=== PATIENT | male | born 1955 | race American Indian/Alaskan Native ===

== ENCOUNTER 2017-03-27 05:06 | Emergency (ER) | payer MEDICAID ==
[2017-03-27 05:57] LABS: Hematocrit 43.7 % (35.5-45.6); Hemoglobin 14.4 gm/dl (11.8-15.2); Mean Corpuscular HGB Conc 33 % (32-34); Mean Corpuscular Hemoglobin 29 pg (28-32); Mean Corpuscular Volume 89 fl (84-94); Platelet Count 200 K/mm3 (140-440); Red Cell Distribution Width 13.9 % (13.2-15.2); White Blood Count 12.7 K/mm3 (4.5-11.0)
[2017-03-27 06:07] LABS: INR 1.08 (0.87-1.13)
[2017-03-27 06:14] LABS: Creatine Kinase MB 8.5 ng/mL (0.0-4.0)
--- NOTE | 2017-03-27 06:14 | Emergency Department Report ---
Blank Doc - Documentation Documentation: Repeat EKG after patient arrival shows ST elevation in inferior leads. This EKG was evaluated by STEMI player development manager regional director of finance Dr. Barrera at 5:40 AM. 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 Patient has complete paralysis of the lower left face, left arm, and left leg. Sensation is intact. Patient denies any chest pain. Positive sternotomy scar noted. Cardiology on standby pending CT head report and Dr. Barrera requests that Dr. En Kay contacted for further system. Case discussed with Dr. Wallis will assume seen for the care. Labs and chest x-ray pending. Dr Kay called at 6:11am and is in route to the hospital eta aprox [address] Burciaga neurologist returned call placed by Dr Wallis. He will evaluate CT images and call back with recommendations.
--- NOTE | 2017-03-27 06:15 | Cat Scan Report ---
FINAL REPORT PROCEDURE: CT HEAD/BRAIN WO CON TECHNIQUE: Computerized tomography of the head was performed without contrast material. HISTORY: left sided weakness COMPARISON: No prior studies are available for comparison. FINDINGS: There is cytotoxic edema involving the right caudate nucleus, frontal lobe, temporal lobe and parietal lobe with effacement of the cortical sulci and the frontal horn of the right lateral ventricle. Findings are consistent with recent ischemic infarction of the right middle cerebral artery territory. There is no hemorrhagic transformation. There is mass effect with shift of the septum pellucidum approximately 6.4 millimeters to the left. The left hemisphere, the brainstem and rene and cerebellum are unremarkable. There is calcified plaque in the cavernous portions of the internal carotid arteries. No specific evidence of acute arterial thrombosis is seen. The bony calvarium is intact. The paranasal sinuses are clear. IMPRESSION: Cytotoxic edema in the right middle cerebral artery vascular territory consistent with recent ischemic infarction. There is no hemorrhagic transformation. There is mass effect with shift of the septum pellucidum 6.4 millimeters to the left. There is no subfalcine or transtentorial herniation.
[2017-03-27 06:16] LABS: Anion Gap 22 mmol/L; BUN/Creatinine Ratio 12.22; Blood Urea Nitrogen 11 mg/dL (9-20); Calcium 9.6 mg/dL (8.4-10.2); Carbon Dioxide 22 mmol/L (22-30); Chloride 97.4 mmol/L (98-107); Creatine Kinase 539 units/L (55-170); Glucose 216 mg/dL (75-100); Potassium 4.3 mmol/L (3.6-5.0); Sodium 137 mmol/L (137-145)
[2017-03-27] MEDS ORDERED: VERSED ONE (06:18)
[2017-03-27] MEDS ORDERED: HEPARIN 10,000 UNITS/10 ML ONE (06:18)
[2017-03-27] MEDS ORDERED: HEPARIN/NS 5000 UNIT/500ML(CATH LAB) 0 ML IR ONE (06:18)
[2017-03-27] MEDS ORDERED: XYLOCAINE 2% INFILTRATI ONE (06:19)
[2017-03-27] MEDS ORDERED: SUBLIMAZE ONE (06:19)
[2017-03-27] MEDS ORDERED: CALAN ONE (06:19)
[2017-03-27] MEDS ORDERED: NITROGLYCERIN SYRINGE 0 ML ONE (06:19)
--- NOTE | 2017-03-27 06:21 | Emergency Department Report ---
ED General Adult HPI - General Chief complaint: Neuro Symptoms/Deficit Stated complaint: POSSIBLE CVA KS Time Seen by Provider: 03/27/17 05:40 Source: patient, EMS, RN notes reviewed, old records reviewed Mode of arrival: Stretcher Limitations: Physical Limitation - History of Present Illness Initial comments: This is a 62-year-old male. He is previously unknown to me. He is brought to the hospital via EMS. Review of old medical records indicates the patient has a history of heart disease, CABG, calm of 3 stents, hypertension. In addition, he is known to have a history of cocaine abuse. As per EMS documentation, they were contacted for a weakness/stroke call. EMS encounter the patient at 4:36 in the morning, with complaint of head, back and leg pain. Patient was found laying on the bathroom floor, for uncertain duration of time, for uncertain mechanism. The patient's last known well time is not known. Patient's initial complaints was left-sided weakness. It is constant. He cannot describe any exacerbating or relieving factors. Patient was found to have an abnormal EKG in the field, possibly concerning for acute KS. However, the patient denied chest pain initially. Apparently his fingerstick was 182. Upon arrival to the ER, patient was found to have left-sided weakness, and a left-sided facial droop. An emergent CT scan demonstrated large right MCA territory infarct, with cytotoxic edema, and midline shift. An initial EKG performed at 5:33 in the morning suggested an inferior wall KS. However, at that time, the patient was chest pain-free. The CT scan images were transmitted to [facility] PACs, and reviewed by their endovascular stroke specialist, Dr. Zaheer Burciaga, who agreed that the patient was not a suitable candidate for thrombolysis given unknown last well time, and also not a candidate for emergent endovascular intervention, and ultimately recommended that we did not need to obtain an emergent CT angiogram of the head and neck for endovascular intervention/stroke rescue. While in the ER, the patient did develop nonspecific epigastric burning and abdominal discomfort, and thus emergent interventional cardiology consult was obtained, with the patient being examined and seen by Dr Cal Kay. The patient is not a thrombolysis candidate for stroke, and given his recent MCA stroke, he is not a thrombolysis candidate for KS, as the patient has a very high risk of bleeding/hemorrhagic transformation. Furthermore, both the cardiology team, and the consulting neurology team, did not recommend heparinization, given high risk of bleed. The consulting neurology service does agree with aspirin, and permissive hypertension. An emergent CT angiogram of the chest, abdomen, pelvis is currently being performed to exclude aortic dissection. The case was also discussed with the neuro group manager at [facility], Dr. Longoria, who requested a call back once the CT angiogram had been performed, and the current plan is to transfer the patient for stroke service is not available at this facility, as his Hospital does not have stroke neurology available for consultation, does not have neurosurgery available in case the patient needs an emergent decompressive hemicraniectomy for cytotoxic edema and swelling. -: unknown Location: abdomen, left, upper extremity, lower extremity Quality: aching Consistency: constant Improves with: none Worsens with: none Associated Symptoms: weakness. denies: chest pain - Related Data Home Medications Medication Instructions Recorded Confirmed Last Taken Clopidogrel Bisulfate [Plavix] 75 mg PO DAILY 05/13/14 05/22/14 05/17/14 03:00 75 Aspirin [Baby Aspirin] 81 mg PO QDAY 05/17/14 05/22/14 05/17/14 03:00 81 HYDROcodone/ACETAMINOPHEN 10 - 325 mg PO PRN PRN 05/22/14 05/22/14 Unknown [Hydrocodon-Acetaminophn 10-325] Nitroglycerin [Nitrostat] 0.4 mg PO PRN PRN 05/22/14 05/22/14 Unknown Zolpidem Tartrate 10 mg PO HS PRN 05/22/14 05/22/14 Unknown traMADol [Ultram] 100 mg PO TID PRN 05/22/14 05/22/14 Unknown Allergies Allergy/AdvReac Type Severity Reaction Status Date / Time No Known Allergies Allergy Unverified 05/13/14 01:01 ED Review of Systems ROS: Stated complaint: POSSIBLE CVA KS Other details as noted in HPI Comment: Unobtainable due to pts medical conditions ED Past Medical Hx - Past Medical History Previous Medical History?: Yes Hx Hypertension: Yes Hx Heart Attack/AMI: Yes Hx Congestive Heart Failure: No Hx Diabetes: No Hx Asthma: No Hx COPD: No - Surgical History Past Surgical History?: Yes Additional Surgical History: CABG (1998), multiple cardiac stents (1994) - Social History Smoking Status: Unknown if ever smoked - Medications Home Medications: Home Medications Medication Instructions Recorded Confirmed Last Taken Type Clopidogrel Bisulfate [Plavix] 75 mg PO DAILY 05/13/14 05/22/14 05/17/14 03:00 History 75 Aspirin [Baby Aspirin] 81 mg PO QDAY 05/17/14 05/22/14 05/17/14 03:00 History 81 HYDROcodone/ACETAMINOPHEN 10 - 325 mg PO PRN PRN 05/22/14 05/22/14 Unknown History [Hydrocodon-Acetaminophn 10-325] Nitroglycerin [Nitrostat] 0.4 mg PO PRN PRN 05/22/14 05/22/14 Unknown History Zolpidem Tartrate 10 mg PO HS PRN 05/22/14 05/22/14 Unknown History traMADol [Ultram] 100 mg PO TID PRN 05/22/14 05/22/14 Unknown History ED Physical Exam - General Limitations: Physical Limitation General appearance: alert, in no apparent distress - Head Head exam: Present: atraumatic, normocephalic - Eye Eye exam: Present: normal appearance, EOMI. Absent: nystagmus - ENT ENT exam: Present: normal exam, normal orophraynx, mucous membranes moist, other - Neck Neck exam: Present: normal inspection, full ROM (there is a left-sided facial droop noted) - Respiratory Respiratory exam: Present: normal lung sounds bilaterally. Absent: respiratory distress, wheezes, rales, rhonchi, stridor, chest wall tenderness - Cardiovascular Cardiovascular Exam: Present: regular rate, normal rhythm, normal heart sounds. Absent: bradycardia, tachycardia, irregular rhythm, systolic murmur, diastolic murmur, rubs, gallop - GI/Abdominal GI/Abdominal exam: Present: soft, normal bowel sounds. Absent: distended, tenderness, guarding, rebound, rigid, pulsatile mass - Rectal Rectal exam: Present: deferred - Extremities Exam Extremities exam: Present: normal inspection, normal capillary refill. Absent: pedal edema, joint swelling, calf tenderness - Back Exam Back exam: Present: normal inspection, full ROM. Absent: tenderness, CVA tenderness (R), CVA tenderness (L), muscle spasm, paraspinal tenderness, vertebral tenderness - Neurological Exam Neurological exam: Present: alert, oriented X3, motor sensory deficit, other ( there is a left-sided facial droop. The extraocular movements are intact. There is 5/5 strength right upper extremity and right lower extremity, with sensation intact to light touch in upper extremity and right lower extremity. There is 0/5 strength in the left upper extremity, and there is 3/5 strength left lower extremity, with decreased sensation to light touch in the left hemibody.) - Psychiatric Psychiatric exam: Present: normal affect, normal mood - Skin Skin exam: Present: warm, dry, intact, normal color. Absent: rash ED Course Vital Signs 03/27/17 03/27/17 03/27/17 05:52 07:38 08:00 Temperature 98.6 F Pulse Rate 66 71 72 Respiratory 18 18 16 Rate Blood Pressure 172/66 Blood Pressure 169/88 162/93 [Left] O2 Sat by Pulse 99 98 98 Oximetry 03/27/17 08:55 Temperature 97.9 F Pulse Rate 82 Respiratory 14 Rate Blood Pressure Blood Pressure 156/99 [Left] O2 Sat by Pulse 99 Oximetry - Reevaluation(s) Reevaluation #1: 03/27/17 07:18 differential diagnosis: Subacute stroke, aortic dissection, acute coronary syndrome, intracranial injury, cervical spine injury Assessment and plan: 62-year-old male with 2 competing issues. He is a subacute stroke, last well time is unknown, he is not a candidate for thrombolysis, and a consultation with endovascular neurology, not a candidate for emergent endovascular salvage intervention. His acute stroke on CT scan is a medical contraindication to thrombolysis, and a contraindication to systemic anticoagulation. The patient is an essentially chest pain-free, with an abnormal EKG, initial presenting EKG performed in the ER suggests inferior wall KS, but is not associated with chest pain. While in the ER, the patient developed nonspecific abdominal pain, and is just getting an emergent CT angiogram to exclude aortic disease/dissection. He has been seen in consultation with our interventional cardiology team, who agreed that the patient is not suitable for thrombolysis or systemic anticoagulation from a cardiology standpoint, as his subacute stroke precludes that. A noncontrast CT scan of the brain demonstrates cytotoxic edema in the right MCA distribution, with 6 mm of shift. Patient will require transfer to [facility], and we have discussed the case with their stroke team, and they're no group manager, Dr. Longoria, who requests call back once his CT angiogram has been completed. Reevaluation #2: 03/27/17 07:38 ct angio chest negative Dr Longoria of [facility] accepts as a transfer Reevaluation #3: 03/27/17 08:11 CT scan of the abdomen and pelvis demonstrates renal thrombus, renal infarction. This is concerning for thromboembolic source of stroke. The case is rediscussed with Dr. Longoria. Systemic anticoagulation will be held as the patient is at very high risk for hemorrhagic transformation. ED Medical Decision Making - Lab Data Result diagrams: 03/27/17 05:40 03/27/17 05:40 Vital Signs 03/27/17 05:52 Pulse Rate 66 Respiratory 18 Rate Blood Pressure 172/66 O2 Sat by Pulse 99 Oximetry Lab Results 03/27/17 03/27/17 03/27/17 Range/Units 05:40 05:40 05:40 WBC 12.7 H (4.5-11.0) K/mm3 RBC 4.90 (3.65-5.03) M/mm3 Hgb 14.4 (11.8-15.2) gm/dl Hct 43.7 (35.5-45.6) % MCV 89 (84-94) fl MCH 29 (28-32) pg MCHC 33 (32-34) % RDW 13.9 (13.2-15.2) % Plt Count 200 (140-440) K/mm3 Add Manual Diff Complete Total Counted 100 Seg Neutrophils % Bilingual Medical Receptionist Seg Neuts % (Manual) 88.0 H (40.0-70.0) % Band Neutrophils % 0 % Lymphocytes % (Manual) 4.0 L (13.4-35.0) % Reactive Lymphs % (Man) 0 % Monocytes % (Manual) 8.0 H (0.0-7.3) % Eosinophils % (Manual) 0 (0.0-4.3) % Basophils % (Manual) 0 (0.0-1.8) % Metamyelocytes % 0 % Myelocytes % 0 % Promyelocytes % 0 % Blast Cells % 0 % Nucleated RBC % Not Reportable Seg Neutrophils # Man 11.2 H (1.8-7.7) K/mm3 Band Neutrophils # 0.0 K/mm3 Lymphocytes # (Manual) 0.5 L (1.2-5.4) K/mm3 Abs React Lymphs (Man) 0.0 K/mm3 Monocytes # (Manual) 1.0 H (0.0-0.8) K/mm3 Eosinophils # (Manual) 0.0 (0.0-0.4) K/mm3 Basophils # (Manual) 0.0 (0.0-0.1) K/mm3 Metamyelocytes # 0.0 K/mm3 Myelocytes # 0.0 K/mm3 Promyelocytes # 0.0 K/mm3 Blast Cells # 0.0 K/mm3 WBC Morphology Not Reportable Hypersegmented Neuts Not Reportable Hyposegmented Neuts Not Reportable Hypogranular Neuts Not Reportable Smudge Cells Not Reportable Toxic Granulation Not Reportable Toxic Vacuolation Not Reportable Dohle Bodies Not Reportable Pelger-Huet Anomaly Not Reportable Kellee Rods Not Reportable Platelet Estimate Consistent w auto Clumped Platelets Not Reportable Plt Clumps, EDTA Not Reportable Large Platelets Not Reportable Giant Platelets Not Reportable Platelet Satelliting Not Reportable Plt Morphology Comment Not Reportable RBC Morphology Not Reportable Dimorphic RBCs Not Reportable Polychromasia Not Reportable Hypochromasia Not Reportable Poikilocytosis Not Reportable Anisocytosis Not Reportable Microcytosis Not Reportable Macrocytosis Not Reportable Spherocytes Not Reportable Pappenheimer Bodies Not Reportable Sickle Cells Not Reportable Target Cells Not Reportable Tear Drop Cells Not Reportable Ovalocytes Not Reportable Helmet Cells Not Reportable Munson-Harahan Bodies Not Reportable [place] Rings Not Reportable [place] Cells Not Reportable Bite Cells Not Reportable Crenated Cell Not Reportable Elliptocytes Not Reportable Acanthocytes (Spur) Not Reportable Rouleaux Not Reportable Hemoglobin C Crystals Not Reportable Schistocytes Not Reportable Malaria parasites Not Reportable Sridhar Bodies Not Reportable Hem Pathologist Commnt No PT 13.9 (12.2-14.9) Sec. INR 1.08 (0.87-1.13) APTT 25.0 (24.2-36.6) Sec. Sodium 137 (137-145) mmol/L Potassium 4.3 (3.6-5.0) mmol/L Chloride 97.4 L (98-107) mmol/L Carbon Dioxide 22 (22-30) mmol/L Anion Gap 22 mmol/L BUN 11 (9-20) mg/dL Creatinine 0.9 (0.8-1.5) mg/dL Estimated GFR > 60 ml/min BUN/Creatinine Ratio 12.22 % Glucose 216 H (75-100) mg/dL Calcium 9.6 (8.4-10.2) mg/dL Total Creatine Kinase 539 H (55-170) units/L CK-MB (CK-2) 8.5 H (0.0-4.0) ng/mL CK-MB (CK-2) Rel Index 1.5 (0-4) Troponin T < 0.010 (0.00-0.029) ng/mL Blood Type Antibody Screen DARIN Antibody Screen 03/27/17 Range/Units 05:40 WBC (4.5-11.0) K/mm3 RBC (3.65-5.03) M/mm3 Hgb (11.8-15.2) gm/dl Hct (35.5-45.6) % MCV (84-94) fl MCH (28-32) pg MCHC (32-34) % RDW (13.2-15.2) % Plt Count (140-440) K/mm3 Add Manual Diff Total Counted Seg Neutrophils % Seg Neuts % (Manual) (40.0-70.0) % Band Neutrophils % % Lymphocytes % (Manual) (13.4-35.0) % Reactive Lymphs % (Man) % Monocytes % (Manual) (0.0-7.3) % Eosinophils % (Manual) (0.0-4.3) % Basophils % (Manual) (0.0-1.8) % Metamyelocytes % % Myelocytes % % Promyelocytes % % Blast Cells % % Nucleated RBC % Seg Neutrophils # Man (1.8-7.7) K/mm3 Band Neutrophils # K/mm3 Lymphocytes # (Manual) (1.2-5.4) K/mm3 Abs React Lymphs (Man) K/mm3 Monocytes # (Manual) (0.0-0.8) K/mm3 Eosinophils # (Manual) (0.0-0.4) K/mm3 Basophils # (Manual) (0.0-0.1) K/mm3 Metamyelocytes # K/mm3 Myelocytes # K/mm3 Promyelocytes # K/mm3 Blast Cells # K/mm3 WBC Morphology Hypersegmented Neuts Hyposegmented Neuts Hypogranular Neuts Smudge Cells Toxic Granulation Toxic Vacuolation Dohle Bodies Pelger-Huet Anomaly Kellee Rods Platelet Estimate Clumped Platelets Plt Clumps, EDTA Large Platelets Giant Platelets Platelet Satelliting Plt Morphology Comment RBC Morphology Dimorphic RBCs Polychromasia Hypochromasia Poikilocytosis Anisocytosis Microcytosis Macrocytosis Spherocytes Pappenheimer Bodies Sickle Cells Target Cells Tear Drop Cells Ovalocytes Helmet Cells Munson-Harahan Bodies [place] Rings [place] Cells Bite Cells Crenated Cell Elliptocytes Acanthocytes (Spur) Rouleaux Hemoglobin C Crystals Schistocytes Malaria parasites Sridhar Bodies Hem Pathologist Commnt PT (12.2-14.9) Sec. INR (0.87-1.13) APTT (24.2-36.6) Sec. Sodium (137-145) mmol/L Potassium (3.6-5.0) mmol/L Chloride (98-107) mmol/L Carbon Dioxide (22-30) mmol/L Anion Gap mmol/L BUN (9-20) mg/dL Creatinine (0.8-1.5) mg/dL Estimated GFR ml/min BUN/Creatinine Ratio % Glucose (75-100) mg/dL Calcium (8.4-10.2) mg/dL Total Creatine Kinase (55-170) units/L CK-MB (CK-2) (0.0-4.0) ng/mL CK-MB (CK-2) Rel Index (0-4) Troponin T (0.00-0.029) ng/mL Blood Type O POSITIVE Antibody Screen TNR DARIN Antibody Screen Negative - EKG Data -: EKG Interpreted by Sc - EKG Data 03/27/17 07:21 normal sinus, 71 bpm, normal axis, QTC 458 ms, ST elevation in the inferior leads, ST depressions V2 and V3, concerning for STEMI. - Radiology Data Radiology results: report reviewed, image reviewed CT scan of the brain demonstrates subacute stroke in the right MCA territory, cytotoxic edema, 6 mm of shift. No bleed. CT scan of the cervical spine is negative. X-ray the chest is negative, median sternotomy is noted. CT scan of the chest, abdomen, pelvis is pending. Critical Care Time: Yes Critical care time in (mins) excluding proc time.: 60 Critical care attestation.: If time is entered above; I have spent that time in minutes in the direct care of this critically ill patient, excluding procedure time. Critical Care Time: Critical care time includes multiple bedside evaluations, interpretation of laboratory studies, radiology studies, time spent managing critically ill patient with abnormal EKG, subacute wakeup stroke, requiring multiple consultations, including interventional cardiology, stroke neurology, and neuro critical care. This does not include procedure time. ED Disposition Clinical Impression: CVA (cerebral vascular accident), Abnormal EKG Disposition: [id number]/TX-[id number] ANOTHER TYPE HLTHCARE Is pt being admited?: No Condition: Critical Referrals: PAVITHRA MCGEE JR, MD [Primary Care Provider] - 3-5 Days
[2017-03-27] MEDS ORDERED: MORPHINE IV ONE (06:28)
[2017-03-27] MEDS ORDERED: APRESOLINE IV ONE (06:28)
[2017-03-27] MEDS ORDERED: NACL ONE (06:29)
--- NOTE | 2017-03-27 06:35 | XRay Report ---
FINAL REPORT EXAM: XR CHEST 1V AP HISTORY: mi TECHNIQUE: Chest, portable supine PRIORS: None. FINDINGS: There is borderline cardiomegaly. Pulmonary vasculature is not congested. The lungs are clear. There are no pleural effusion seen. There is no evidence of pneumothorax. IMPRESSION: There is no acute abnormality identified.
--- NOTE | 2017-03-27 06:38 | Cat Scan Report ---
FINAL REPORT EXAM: CT CERVICAL SPINE WO CON HISTORY: fall head injury, left weakness TECHNIQUE: A noncontrast CT of the cervical spine was performed. Coronal and sagittal reformatted images were obtained. PRIORS: None. FINDINGS: There is no evidence of acute fracture. Vertebral body heights and alignment are maintained. At C2-3 there is mild disc bulge without significant spinal stenosis. At C3-4 there is a broad-based mild disc protrusion without significant spinal or neural foraminal stenosis seen. At C4-5 there is moderate to marked narrowing of the intervertebral space. There endplate sclerosis and moderate marginal end-plate spurring. There is posterior spurring causing mild spinal stenosis. Uncovertebral spurs cause mild to moderate neuroforaminal narrowing, right more than left. At C5-6 there is also marked narrowing of the intervertebral space. There is endplate sclerosis and marginal end-plate spurring. There is posterior disc osteophyte complex causing mild spinal stenosis. Uncovertebral spurs and broad-based disc protrusion cause moderate bilateral neuroforaminal narrowing. At C6-7 there is mild degenerative disc disease. There is no significant spinal or neural foraminal stenosis. At C7-T1 there is no significant abnormality. IMPRESSION: There is no evidence of cervical spine fracture or subluxation. Multilevel degenerative disc disease, most notable at C4-5 and C5-6 as indicated above.
[2017-03-27 07:05] LABS: Basophils % (Manual) 0 % (0.0-1.8); Blastocytes % (Manual) 0 %; Eosinophils % (Manual) 0 % (0.0-4.3)
[2017-03-27 07:06] LABS: Diff Status Complete; Platelet Estimate Consistent w Auto
--- NOTE | 2017-03-27 07:07 | Consultation ---
History of Present Illness Consult date: 03/27/17 Requesting physician: JOE SOSA Consult reason: other (Acute WA ) History of present illness: Patient was brought in the to ED as an acute WA. family apparently called the EMT as he was found on the floor. Stroke protocol was initiated and EKG done. Initial EKG in the field did not reveal acute WA but EKG in the ER was consistent with acute inferior WA. Patient however was asymptomatic . Code STEMI was activated . But patient was noted to have left facial droop and hemiparesis. Code STEMI was held and patient had an emergent CT that revealed large infarct with possible midline shift. Patient reports he has been non compliant with his medications. He does have history of CAD S/P CABG and multiple PCI. Currently reports no chest pain does have some vague abdominal pain. A stat CT was done to rule out aortic dissection given inferior WA/HTN and acute CVA. CT scan negative for dissection. Past History Past Medical History: CAD, hypertension, hyperlipidemia Past Surgical History: CABG Social history: lives with family, smoking Family history: no significant family history Medications and Allergies Allergies Allergy/AdvReac Type Severity Reaction Status Date / Time No Known Allergies Allergy Unverified 05/13/14 01:01 Home Medications Medication Instructions Recorded Confirmed Last Taken Type Clopidogrel Bisulfate [Plavix] 75 mg PO DAILY 05/13/14 05/22/14 05/17/14 03:00 History 75 Aspirin [Baby Aspirin] 81 mg PO QDAY 05/17/14 05/22/14 05/17/14 03:00 History 81 HYDROcodone/ACETAMINOPHEN 10 - 325 mg PO PRN PRN 05/22/14 05/22/14 Unknown History [Hydrocodon-Acetaminophn 10-325] Nitroglycerin [Nitrostat] 0.4 mg PO PRN PRN 05/22/14 05/22/14 Unknown History Zolpidem Tartrate 10 mg PO HS PRN 05/22/14 05/22/14 Unknown History traMADol [Ultram] 100 mg PO TID PRN 05/22/14 05/22/14 Unknown History Review of Systems All systems: negative (as m entioned in the H&P) Physical Examination Vital Signs Pulse Resp BP Pulse Ox 66 18 172/66 99 03/27/17 05:52 03/27/17 05:52 03/27/17 05:52 03/27/17 05:52 General appearance: no acute distress HEENT: Positive: Normocephaly Neck: Positive: neck supple Cardiac: Positive: Reg Rate and Rhythm Lungs: Positive: clear to auscultation Neuro: Positive: Weakness (Left ) Results 03/27/17 05:40 03/27/17 05:40 Cardiac Enzymes 03/27/17 Range/Units 05:40 CK-MB (CK-2) 8.5 H (0.0-4.0) ng/mL Coagulation 03/27/17 Range/Units 05:40 PT 13.9 (12.2-14.9) Sec. INR 1.08 (0.87-1.13) APTT 25.0 (24.2-36.6) Sec. CBC 03/27/17 Range/Units 05:40 WBC 12.7 H (4.5-11.0) K/mm3 RBC 4.90 (3.65-5.03) M/mm3 Hgb 14.4 (11.8-15.2) gm/dl Hct 43.7 (35.5-45.6) % Plt Count 200 (140-440) K/mm3 Comprehensive Metabolic Panel 03/27/17 Range/Units 05:40 Sodium 137 (137-145) mmol/L Potassium 4.3 (3.6-5.0) mmol/L Chloride 97.4 L (98-107) mmol/L Carbon Dioxide 22 (22-30) mmol/L BUN 11 (9-20) mg/dL Creatinine 0.9 (0.8-1.5) mg/dL Glucose 216 H (75-100) mg/dL Calcium 9.6 (8.4-10.2) mg/dL EKG interpretations - Telemetry EKG Rhythm: Sinus Rhythm (Inferior STEMI) Assessment and Plan 1. Major CVA 2. Acute inferior WA 3. CAD S/P CABG 4. HTN 5. HLP 6. Non compliance Plan Complicated patient with multiple comorbidities Patient has a massive CVA with possible midline shift. In view of this patient is not a candidate for anticoagulation. neurology at [facility] consulted and was advised not to give heparin due to hemorrhagic transformation. In view of this will defer laborer laboratory and invasive coronary angiography. Patient to be treated with aspirin ( clerked by neurology ) . BP per stroke protocol. High intensity statins. Patient likely to be transferred to a tertiary care facility with invasive neurology/ neurosurgery back up. Prognosis extremely poor.
--- NOTE | 2017-03-27 07:32 | Cat Scan Report ---
FINAL REPORT PROCEDURE: CT ANGIO CHEST TECHNIQUE: Computerized tomographic angiography of the chest was performed after the IV injection of iodinated nonionic contrast including image processing. The image data was postprocessed using 2-dimensional multiplanar reformatted (MPR) and 3-dimensional (MIP and/or volume rendered) techniques. 100 milliliters Optiray 350 IV contrast was given. HISTORY: dissection protocol COMPARISON: Chest one view 03/27/2017 FINDINGS: Heart and pericardium: Prior CABG. No pericardial effusion. Thoracic aorta: No dissection or aneurysm. Bovine configuration of the aortic arch an anatomic variant. Pulmonary vasculature: Normal. Lymph nodes: No lymphadenopathy. Calcified mediastinal and right hilar lymph nodes. Lungs: Calcified granuloma of the right lower lobe. Pleural space: No effusion, thickening, or pneumothorax. Musculoskeletal structures: No significant abnormality. Upper abdominal structures: Granulomatous exposure to the spleen worse than liver. Partially imaged cyst versus is infarct of the upper pole of the left kidney. IMPRESSION: The imaged aorta demonstrates no dissection or aneurysm. Bovine aortic arch an anatomic variant. Prior granulomatous exposure as described. Likely cyst of the upper pole of the kidney. Partially imaged prior infarct not excluded. Prior median sternotomy
[2017-03-27] MEDS ORDERED: BABY ASPIRIN PO ONE (07:37)
[2017-03-27] MEDS ORDERED: ZOFRAN ONE (07:40)
[2017-03-27] MEDS ORDERED: ZOFRAN IV ONE (07:40)
[2017-03-27] MEDS ORDERED: SUBLIMAZE IV ONE (07:41)
--- NOTE | 2017-03-27 08:04 | Cat Scan Report ---
FINAL REPORT PROCEDURE: CT ANGIO ABDOMEN PELVIS TECHNIQUE: Consent was obtained. 100 milliliters Optiray 350 IV contrast was given and axial sections and post processed maximal intensity projection and reformatted images were viewed through the abdomen and pelvis. HISTORY: dissection protocol COMPARISON: None FINDINGS: Prior granulomatous exposure to the spleen worse than liver is present. The gallbladder, pancreas, adrenal glands, and right kidney are unremarkable. The left kidney demonstrates multi focal infarction most conspicuously of the lower pole. Mild perinephric infiltrative changes are present most conspicuously about the lower pole. There is no abdominal aortic aneurysm or dissection. Atherosclerotic disease of the distal abdominal aorta, pelvic and proximal thigh arterial vasculature is present. There is no stenosis or aneurysm involving the celiac or superior mesenteric arteries. The inferior mesenteric artery is unremarkable. The right renal arteries are normal. There is asymmetrical hypodensity within the immediate extrarenal left renal artery at the level of the lower pole as well as intrarenal. This is seen for example on axial series 102, image 137 as well as on sagittal reformat image 69. The prostate is top-normal in size. The urinary bladder is normal. Evaluation of bowel pathology is limited without oral contrast. There is no gross focal bowel abnormality. There is no bowel obstruction. There is no ascites or lymphadenopathy. Degenerative changes of the spine are present worst at L5/S1. Superimposed disc protrusions of the lumbar spine largest at L4/L5 and L5/S1 are not excluded. IMPRESSION: Partial infarction of the left kidney. Suspected hypodense thrombus partially within the distal extrarenal renal artery as well as lower pole intrarenal. Atherosclerotic disease. No abdominal aortic aneurysm or dissection. Prior granulomatous exposure to the spleen worse than liver. Degenerative changes of the spine worst at L5/S1. Superimposed lumbar disc protrusions not excluded largest at L4/L5 and L5/S1. Consider if desired MRI for further evaluation.
[2017-03-27 09:13] VITALS: BP 156/99
[2017-03-27] MEDS ORDERED: DILAUDID IV PRN (09:58)
[2017-03-27] MEDS ORDERED: ZOFRAN IV PRN (09:58)
== END 2017-03-27 09:00 | disposition other institution (70) ==
LOC: ED 05:06
DX: I63.9 Cerebral infarction, unspecified (principal); R94.31 Abnormal electrocardiogram [ECG] [EKG]; I10 Essential (primary) hypertension; Z95.1 Presence of aortocoronary bypass graft; Z79.82 Long term (current) use of aspirin
CPT/HCPCS: 36415; 70450; 71010; 71275; 72125; 74174; 80048; 82550; 82553; 84484; 85007; 85025; 85610; 85730; 86850; 86900; 86901; 93005; 93010; 96374; 96375; 99291; J2270; J2405; Q9967; J1644; J2250; J3010